=== PATIENT | female | born 1990 | race Caucasian/White ===

== ENCOUNTER → 2020-10-21 | Outpatient (REF) | LOC: M LAB 13:20 | PROVIDERS: ATTEND Nurse Practitioner Adult Health | DX: Z00.00 Encounter for general adult medical examination without abnormal findings (principal) ==

== ENCOUNTER → 2022-02-15 | Outpatient (REF) | payer OTHER ==
[2022-02-15 11:48] LABS: BASO % 0.2 % (0.0-1.0); EOS # 0.2 10^3/uL (0.0-0.5); EOS % 2.7 % (0.0-3.0); HEMATOCRIT 42.4 % (36.0-47.0); LYMPH # 2.3 10^3/uL (1.5-5.0); LYMPH % 27.7 % (24.0-44.0); MEAN CORPUSCULAR HEMOGLOBIN 27.8 pg (27.0-33.0); MEAN CORPUSCULAR VOLUME 84.1 fl (80.0-96.0); MONO # 0.8 10^3/uL (0.0-0.8); MONO % 9.3 % (2.0-8.0); NEUTROPHILS % 59.9 % (36.0-66.0); PLATELET COUNT, AUTOMATED 219 10^3/uL (150-450); RED BLOOD COUNT 5.04 10^6/uL (4.00-5.40); WHITE BLOOD COUNT 8.3 10^3/uL (4.0-10.0)
[2022-02-15 12:27] LABS: ALBUMIN 3.8 GM/DL (3.2-5.2); ALT/SGPT 34 U/L (12-78); BILIRUBIN,TOTAL 0.3 MG/DL (0.2-1.0); BLOOD UREA NITROGEN 16 MG/DL (7-18); CALCIUM LEVEL 8.7 MG/DL (8.5-10.1); CARBON DIOXIDE LEVEL 29 MEQ/L (21-32); CHLORIDE LEVEL 106 MEQ/L (98-107); CHOLESTEROL LEVEL 162 MG/DL (<200); CREATININE FOR GFR 0.77 MG/DL (0.55-1.30); FREE T4 0.82 NG/DL (0.76-1.46); GLOMERULAR FILTRATION RATE > 60.0 (>60); GLUCOSE, FASTING 94 MG/DL (70-100); HDL CHOLESTEROL 45 MG/DL (>40); LDL CHOLESTEROL 88 MG/DL (<100); NON-HDL-C 117 MG/DL; SODIUM LEVEL 138 MEQ/L (136-145); TOTAL PROTEIN 7.1 GM/DL (6.4-8.2); TRIGLYCERIDES LEVEL 145 MG/DL (<150)
[2022-02-15 12:28] LABS: TOTAL 25(OH) VITAMIN D 23.8 NG/ML (30.0-100.0)
== END ==
LOC: M SFHCCLAY 08:41
PROVIDERS: ATTEND Nurse Practitioner Family
DX: E66.9 Obesity, unspecified (principal); G43.909 Migraine, unspecified, not intractable, without status migrainosus; Z68.34 Body mass index [BMI] 34.0-34.9, adult

== ENCOUNTER → 2022-03-14 | Outpatient (REF) | payer BC | LOC: M SFHCCLAY 09:14 | PROVIDERS: ATTEND Nurse Practitioner Family | DX: Z12.4 Encounter for screening for malignant neoplasm of cervix (principal); R87.810 Cervical high risk human papillomavirus (HPV) DNA test positive | CPT/HCPCS: 87624; G0123 ==

== ENCOUNTER → 2022-08-23 | Outpatient (CLI) | payer BC | LOC: M PLAIMG 10:01 | PROVIDERS: ATTEND Otolaryngology | DX: J32.4 Chronic pansinusitis (principal) ==

== ENCOUNTER → 2023-02-28 | Outpatient (CLI) | payer BC | LOC: M WUC 10:57 | PROVIDERS: ATTEND Student in an Organized Health Care Education/Training Program | DX: M79.671 Pain in right foot (principal) ==

== ENCOUNTER → 2023-07-12 | Outpatient (CLI) | payer BC | LOC: M PLAIMG 07:43 | PROVIDERS: ATTEND Nurse Practitioner Family | DX: M54.17 Radiculopathy, lumbosacral region (principal); M47.816 Spondylosis without myelopathy or radiculopathy, lumbar region; M51.26 Other intervertebral disc displacement, lumbar region ==

== ENCOUNTER → 2023-10-04 | Outpatient (REF) | LOC: M EMP 15:30 | PROVIDERS: ATTEND Family Medicine | DX: Z11.52 Encounter for screening for COVID-19 (principal) ==

== ENCOUNTER → 2023-11-07 | Outpatient (CLI) | payer BC, OTHER ==
[2023-11-07 12:18] LABS: HCG, SERUM QUANTITATIVE < 2.6 MIU/ML (<4.2)
[2023-11-07 12:22] LABS: THYROID STIMULATING HORMONE 1.434 uIU/ML (0.55-4.78)
[2023-11-07 12:23] LABS: TOTAL 25(OH) VITAMIN D 46.9 NG/ML (20.0-100.0)
== END ==
LOC: M PLALAB 07:45
PROVIDERS: ATTEND Obstetrics & Gynecology Reproductive Endocrinology
DX: Z31.41 Encounter for fertility testing (principal)

== ENCOUNTER → 2024-01-27 | Outpatient (CLI) | payer BC ==
[2024-01-27 09:03] LABS: ESTRADIOL 414.4 PG/ML
[2024-01-27 09:05] LABS: PROGESTERONE 48.56 NG/ML
== END ==
LOC: M LAB 07:39
PROVIDERS: ATTEND Obstetrics & Gynecology Reproductive Endocrinology
DX: Z31.49 Encounter for other procreative investigation and testing (principal)

== ENCOUNTER → 2024-02-03 | Outpatient (CLI) | payer BC ==
[2024-02-03 10:10] LABS: HCG, SERUM QUANTITATIVE 217.3 MIU/ML (<4.2)
[2024-02-03 10:15] LABS: PROGESTERONE 48.51 NG/ML
== END ==
LOC: M LAB 08:51
PROVIDERS: ATTEND Obstetrics & Gynecology Reproductive Endocrinology
DX: Z32.00 Encounter for pregnancy test, result unknown (principal)

== ENCOUNTER → 2024-02-05 | Outpatient (CLI) | payer BC ==
[2024-02-05 08:44] LABS: HCG, SERUM QUANTITATIVE 631.6 MIU/ML (<4.2)
[2024-02-05 08:47] LABS: THYROID STIMULATING HORMONE 3.137 uIU/ML (0.55-4.78)
[2024-02-05 08:48] LABS: ESTRADIOL 606.2 PG/ML; PROGESTERONE 49.69 NG/ML
== END ==
LOC: M LAB 07:38
PROVIDERS: ATTEND Obstetrics & Gynecology Reproductive Endocrinology
DX: Z32.01 Encounter for pregnancy test, result positive (principal)

== ENCOUNTER → 2024-04-28 | Outpatient (CLI) | payer BC ==
[2024-04-28 17:30] LABS: HEMATOCRIT 42.9 % (36.0-47.0); HEMOGLOBIN 13.8 g/dl (12.0-15.5); MEAN CORPUSCULAR HEMOGLOBIN 28.4 pg (27.0-33.0); MEAN CORPUSCULAR HGB CONC 32.2 g/dl (32.0-36.5); MEAN CORPUSCULAR VOLUME 88.3 fl (80.0-96.0); PLATELET COUNT, AUTOMATED 203 10^3/uL (150-450); RED BLOOD COUNT 4.86 10^6/uL (4.00-5.40); WHITE BLOOD COUNT 8.2 10^3/uL (4.0-10.0)
[2024-04-28 18:22] LABS: HIV 1&2 SCREEN NEGATIVE (NEGATIVE)
[2024-04-28 18:31] LABS: HEPATITIS C VIRUS ABY INDEX < 0.02 INDEX (<0.8)
[2024-04-28 18:52] LABS: GC DNA AMPLIFICATION NEGATIVE (NEGATIVE)
== END ==
LOC: M PLALAB 14:55
PROVIDERS: ATTEND Advanced Practice Midwife
DX: Z34.92 Encounter for supervision of normal pregnancy, unspecified, second trimester (principal); Z3A.00 Weeks of gestation of pregnancy not specified

== ENCOUNTER → 2024-04-28 | Outpatient (REF) | payer BC | LOC: M PLALAB 14:09 | PROVIDERS: ATTEND Advanced Practice Midwife | DX: Z34.92 Encounter for supervision of normal pregnancy, unspecified, second trimester (principal); Z53.9 Procedure and treatment not carried out, unspecified reason ==

== ENCOUNTER → 2024-06-19 | Outpatient (CLI) | payer BC | LOC: M WHC 14:48 | PROVIDERS: ATTEND Advanced Practice Midwife | DX: Z34.92 Encounter for supervision of normal pregnancy, unspecified, second trimester (principal) ==

== ENCOUNTER → 2024-07-09 | Outpatient (CLI) | payer BC ==
[2024-07-09 13:37] LABS: HEMATOCRIT 39.8 % (36.0-47.0); HEMOGLOBIN 12.7 g/dl (12.0-15.5); MEAN CORPUSCULAR HEMOGLOBIN 28.3 pg (27.0-33.0); MEAN CORPUSCULAR HGB CONC 31.9 g/dl (32.0-36.5); MEAN CORPUSCULAR VOLUME 88.6 fl (80.0-96.0); PLATELET COUNT, AUTOMATED 189 10^3/uL (150-450); RED BLOOD COUNT 4.49 10^6/uL (4.00-5.40); WHITE BLOOD COUNT 6.8 10^3/uL (4.0-10.0)
[2024-07-09 14:10] LABS: GLUCOSE CHALLENGE TEST 1 HOUR 139 MG/DL (LESS THAN 140)
[2024-07-09 14:37] LABS: HIV 1&2 SCREEN NEGATIVE (NEGATIVE)
[2024-07-09 14:45] LABS: HEPATITIS C VIRUS ABY INDEX 0.04 INDEX (<0.8)
[2024-07-09 14:50] LABS: GC DNA AMPLIFICATION NEGATIVE (NEGATIVE)
== END ==
LOC: M PLALAB 08:56
PROVIDERS: ATTEND Specialist
DX: Z34.92 Encounter for supervision of normal pregnancy, unspecified, second trimester (principal); Z3A.00 Weeks of gestation of pregnancy not specified

== ENCOUNTER → 2024-08-07 | Outpatient (CLI) | payer BC | LOC: M WHC 11:38 | PROVIDERS: ATTEND Obstetrics & Gynecology | DX: Z36.2 Encounter for other antenatal screening follow-up (principal) ==

== ENCOUNTER 2024-08-15 03:09 | Outpatient (CLI) | payer BC ==
[~2024-08-15] VITALS: Ht 165.1 cm; Wt 114.2 kg
[2024-08-15 03:26] VITALS: BP 122/65
== END 2024-08-15 04:15 | disposition home or self-care (01) ==
LOC: M LDO 03:09
PROVIDERS: ATTEND Advanced Practice Midwife
DX: O26.893 Other specified pregnancy related conditions, third trimester (principal); O09.813 Supervision of pregnancy resulting from assisted reproductive technology, third trimester; O09.523 Supervision of elderly multigravida, third trimester; O34.219 Maternal care for unspecified type scar from previous cesarean delivery; O99.343 Other mental disorders complicating pregnancy, third trimester; R10.2 Pelvic and perineal pain; F41.8 Other specified anxiety disorders; F43.10 Post-traumatic stress disorder, unspecified; Z3A.32 32 weeks gestation of pregnancy
CPT/HCPCS: 59025; G0463

== ENCOUNTER → 2024-08-18 | Outpatient (CLI) | payer BC | LOC: M LAB 07:41 | PROVIDERS: ATTEND Obstetrics & Gynecology | DX: O99.810 Abnormal glucose complicating pregnancy (principal); Z3A.00 Weeks of gestation of pregnancy not specified ==

== ENCOUNTER → 2024-08-25 | Outpatient (CLI) | payer BC | LOC: M WHC 15:04 | PROVIDERS: ATTEND Obstetrics & Gynecology | DX: O09.523 Supervision of elderly multigravida, third trimester (principal); Z3A.00 Weeks of gestation of pregnancy not specified; Z53.9 Procedure and treatment not carried out, unspecified reason ==

== ENCOUNTER → 2024-08-31 | Outpatient (CLI) | payer BC | LOC: M RAD 15:24 | PROVIDERS: ATTEND Obstetrics & Gynecology | DX: Z34.93 Encounter for supervision of normal pregnancy, unspecified, third trimester (principal) ==

== ENCOUNTER → 2024-09-10 | Outpatient (REF) | payer BC | LOC: M SFHCWAGY 12:32 | PROVIDERS: ATTEND Obstetrics & Gynecology | DX: Z33.1 Pregnant state, incidental (principal); Z3A.35 35 weeks gestation of pregnancy ==

== ENCOUNTER 2024-10-05 05:44 | Inpatient (IN) | payer BC ==
[~2024-10-05] VITALS: Ht 167.6 cm; Wt 113.0 kg
[2024-10-05] VITALS (10 sets, daily range): BP systolic 99–122; BP diastolic 53–78; TEMP 97.6; O2SAT 95–98
[~2024-10-05 05:44] MED LIST: BAYE81TA7 PO; DIPH25CA PO; LEXA1TAB PO; METF850T4 PO; MULTTAB20 PO
[2024-10-05 06:41] LABS: HEMATOCRIT 38.5 % (36.0-47.0); HEMOGLOBIN 12.7 g/dl (12.0-15.5); MEAN CORPUSCULAR HEMOGLOBIN 28.2 pg (27.0-33.0); MEAN CORPUSCULAR VOLUME 85.4 fl (80.0-96.0); PLATELET COUNT, AUTOMATED 177 10^3/uL (150-450); RED BLOOD COUNT 4.51 10^6/uL (4.00-5.40); WHITE BLOOD COUNT 6.5 10^3/uL (4.0-10.0)
[2024-10-05] MEDS: BICITRA 30ML SOLN UDC PO ONE (07:10)
[2024-10-05] MEDS: ceFAZolin SOD 2 GM in IV 1 EA IV ONE (07:10)
[2024-10-05] MEDS: LACTATED RINGER'S 1000 ML IV STA (07:11)
[2024-10-05] MEDS: LR 1,000 ML IV SCH ×2 (07:17→09:45)
[2024-10-05] MEDS ORDERED: KETOROLAC 60MG 2ML VIAL As Ordered ONE (07:23)
[2024-10-05] MEDS ORDERED: PHENYLephrine 500MCG 5ML (100MCG/ML) SYRINGE As Ordered ONE (07:24)
[2024-10-05] MEDS ORDERED: ONDANSETRON 4MG 2ML VIAL As Ordered ONE (07:24)
[2024-10-05] MEDS ORDERED: MORPHINE PRES-FREE INJ 10 MG/10 ML VIAL As Ordered ONE (07:24)
[2024-10-05 07:40] LABS: HEPATITIS C VIRUS ABY INDEX < 0.02 INDEX (<0.8)
[2024-10-05] MEDS ORDERED: OXYTOCIN INJ 10UNITS/ML 1ML VIAL As Ordered ONE (08:03)
[2024-10-05 08:13] LABS: CORD GAS ABE V -4.3; CORD GAS HCO3 V 23.6 MMOL/L; CORD GAS O2 SAT V 65.3 %; CORD GAS PCO2 V 53.6 mmHg; CORD GAS PH V 7.261 UNITS; CORD GAS PO2 V 29.3 mmHg; CORD GAS SBC V 20.2 MMOL/L; CORD GAS TCO2 V 25.2 MMOL/L
[2024-10-05] MEDS ORDERED: ePHEDrine SULFATE 25 MG/5 ML(5MG/ML) SYRINGE As Ordered ONE (08:24)
[2024-10-05] MEDS ORDERED: SIMETHICONE 80MG CHEW TAB PO PRN (08:50)
[2024-10-05] MEDS ORDERED: ONDANSETRON 4MG 2ML VIAL IV PRN ×2 (08:50→08:55)
[2024-10-05] MEDS ORDERED: NALOXONE INJ 0.4MG/1ML VIAL IV PRN ×2 (08:55)
[2024-10-05] MEDS ORDERED: diphenhydrAMINE 50MG/ML VIAL IV PRN (08:55)
[2024-10-05] MEDS: SLF 3 ML SYR IV SCH (08:55)
[2024-10-05] MEDS ORDERED: LR 1,000 ML IV SCH (08:55)
[2024-10-05] MEDS ORDERED: fentaNYL 100 MCG/2 ML INJECTION IV PRN (08:55)
[2024-10-05] MEDS ORDERED: **NOTE PATIENT COMMENT** MISC XX SCH (08:55)
[2024-10-05] MEDS ORDERED: oxyCODONE 5MG TAB PO PRN (08:55)
[2024-10-05] MEDS: PRENATAL VITAMINS CHEWABLE TABLET PO SCH (09:00)
[2024-10-05] MEDS ORDERED: METOCLOPRAMIDE INJ 10MG/2ML VIAL As Ordered ONE (09:11)
[2024-10-05] MEDS: METOCLOPRAMIDE INJ 10MG/2ML VIAL IV PRN (09:12)
[2024-10-05] MEDS: KETOROLAC 30 MG/ML 1ML VIAL IV SCH (14:04)
[2024-10-05] MEDS ORDERED: ENOXAPARIN 60MG/0.6ML SYRINGE (J1650 PER 10MG) SC SCH ×2 (18:00)
[2024-10-05] MEDS ORDERED: metFORMIN (GLUCOPHAGE) 500MG TAB PO SCH (18:00)
[2024-10-05] MEDS: ENOXAPARIN 60MG/0.6ML SYRINGE (J1650 PER 10MG) SC SCH (20:24)
[2024-10-05] MEDS: ESCITALOPRAM OXALATE 10 MG TAB (LEXAPRO) PO SCH (20:24)
[2024-10-06 02:00] VITALS: BP 99/57; O2SAT 98
[2024-10-06 06:00] VITALS: BP 97/56; O2SAT 96
[2024-10-06 06:21] LABS: HEMATOCRIT 28.9 % (36.0-47.0); MEAN CORPUSCULAR HEMOGLOBIN 28.5 pg (27.0-33.0); MEAN CORPUSCULAR HGB CONC 32.5 g/dl (32.0-36.5); MEAN CORPUSCULAR VOLUME 87.6 fl (80.0-96.0); PLATELET COUNT, AUTOMATED 144 10^3/uL (150-450); WHITE BLOOD COUNT 5.9 10^3/uL (4.0-10.0)
[2024-10-06 06:33] LABS: HEMOGLOBIN 9.4 g/dl (12.0-15.5)
[2024-10-06] MEDS: IBUPROFEN 800 MG TAB PO SCH (09:31)
[2024-10-06 10:00] VITALS: BP 104/51; O2SAT 98
[2024-10-06 14:00] VITALS: BP 100/63; O2SAT 99
[2024-10-06] MEDS: PERCOCET 5MG/325MG TAB PO PRN ×2 (16:06→21:30)
[2024-10-06 18:00] VITALS: BP 101/64; O2SAT 97
[2024-10-06] MEDS: DOCUSATE SODIUM 100MG CAPSULE PO PRN (18:08)
[2024-10-06 22:00] VITALS: BP 98/64; O2SAT 98
[2024-10-07 02:00] VITALS: BP 111/70; O2SAT 96
[2024-10-07 06:00] VITALS: BP 109/62; O2SAT 100
[2024-10-07] MEDS: MEASLES,MUMPS,RUBELLA VACCINE INJ (MMR-II) SC.IMMUN ONE (07:31)
[2024-10-07] MEDS: RHOGAM 300MCG (1500IU) INJ IM SCH (07:32)
[2024-10-07] MEDS: MOM 30ML SUSPENSION UDC PO ONE (08:51)
== END 2024-10-07 12:48 | disposition home or self-care (01) | DRG 540 ==
LOC: M LDI 05:44 → M OBS 09:45
PROVIDERS: ADMIT Specialist; ATTEND Specialist
PROC: 10D00Z1 Extraction of Products of Conception, Low, Open Approach (ICD-10-PCS; principal; 2024-10-05 07:30)
DX: O34.211 Maternal care for low transverse scar from previous cesarean delivery (principal); O09.523 Supervision of elderly multigravida, third trimester; Z37.0 Single live birth; Z3A.39 39 weeks gestation of pregnancy

== ENCOUNTER → 2024-10-14 | Outpatient (REF) | payer BC | LOC: M SFHCWAGY 13:07 | PROVIDERS: ATTEND Specialist | DX: R30.0 Dysuria (principal) ==

== ENCOUNTER → 2025-01-13 | Outpatient (CLI) | payer BC ==
[2025-01-13 09:59] LABS: BASO % 0.3 % (0.0-1.0); EOS # 0.1 10^3/uL (0.0-0.5); EOS % 1.5 % (0.0-3.0); HEMATOCRIT 44.8 % (36.0-47.0); HEMOGLOBIN 14.8 g/dl (12.0-15.5); LYMPH # 1.6 10^3/uL (1.5-5.0); LYMPH % 23.6 % (24.0-44.0); MEAN CORPUSCULAR HEMOGLOBIN 27.4 pg (27.0-33.0); MONO # 0.5 10^3/uL (0.0-0.8); MONO % 7.9 % (2.0-8.0); NEUTROPHILS # 4.4 10^3/uL (1.5-8.5); NEUTROPHILS % 66.4 % (36.0-66.0); PLATELET COUNT, AUTOMATED 248 10^3/uL (150-450); WHITE BLOOD COUNT 6.6 10^3/uL (4.0-10.0)
[2025-01-13 10:24] LABS: ALBUMIN 3.7 G/DL (3.2-5.2); ALKALINE PHOSPHATASE 95 U/L (35-104); ALT/SGPT 41 U/L (7.0-40); AST/SGOT 24 U/L (<34); BILIRUBIN,TOTAL 0.6 MG/DL (0.3-1.2); BLOOD UREA NITROGEN 13 MG/DL (9-23); CALCIUM LEVEL 9.2 MG/DL (8.5-10.1); CARBON DIOXIDE LEVEL 22 MMOL/L (20-31); CHLORIDE LEVEL 107 MMOL/L (98-107); CHOLESTEROL LEVEL 181 MG/DL (<200); CREATININE FOR GFR 0.64 MG/DL (0.55-1.30); GLOMERULAR FILTRATION RATE > 90.0 (>60); GLUCOSE, FASTING 115 MG/DL (60-100); HDL CHOLESTEROL 48.8 MG/DL (>40); LDL CHOLESTEROL 107.2 MG/DL (<100); NON-HDL-C 132.2 MG/DL; POTASSIUM SERUM 4.6 MMOL/L (3.5-5.1); SODIUM LEVEL 139 MMOL/L (136-145); TOTAL PROTEIN 7.2 G/DL (5.7-8.2); TRIGLYCERIDES LEVEL 125 MG/DL (<150)
[2025-01-13 10:35] LABS: HEMOGLOBIN A1c 4.7 % (4.0-6.0)
[2025-01-13 10:36] LABS: FREE T4 0.97 NG/DL (0.89-1.76)
[2025-01-13 10:37] LABS: THYROID STIMULATING HORMONE 0.986 uIU/ML (0.55-4.78)
== END ==
LOC: M LAB 08:50
PROVIDERS: ATTEND Nurse Practitioner Family
DX: Z86.32 Personal history of gestational diabetes (principal); E66.01 Morbid (severe) obesity due to excess calories; Z68.35 Body mass index [BMI] 35.0-35.9, adult